=== PATIENT | female | born 1990 | race Two or more races ===

== ENCOUNTER 2024-11-30 10:40 | Day surgery (SDC) | payer SELFPAY ==
[~2024-11-30 10:40] MED LIST: Albuterol 0.083% 2.5 MG/3 ML Neb Soln NEB PRN; Naloxone 0.4 MG/ML SDV IVPUSH PRN; Ondansetron 4 MG/2 ML SDV IVPUSH PRN; ceFAZolin 2 GM in Water For Injection, Sterile 20 ML IVPUSH ONE; fentaNYL 50 MCG/ML SDV IVPUSH PRN
[2024-11-30] MEDS ORDERED: propofoL 1,000 MG/100 ML 100 ML ONE (10:57)
[2024-11-30] MEDS ORDERED: Ropivacaine 0.5% 5 MG/ML 30 ML SDV ONE (10:58)
[2024-11-30] MEDS ORDERED: fentaNYL 100 MCG/2 ML SDV ONE (11:09)
[2024-11-30] MEDS ORDERED: Midazolam 1 MG/ML 2 ML SDV ONE (12:26)
[2024-11-30] MEDS ORDERED: Propofol 200 MG/20 ML SDV ONE (12:32)
[2024-11-30] MEDS: Lactated Ringers 1,000 ML IV SCH (12:39)
[2024-11-30] MEDS ORDERED: Ondansetron 4 MG/2 ML SDV ONE (13:12)
[2024-11-30] MEDS ORDERED: Dexamethasone 4 MG/ML 5 ML MDV ONE (13:12)
[2024-11-30] MEDS ORDERED: Acetaminophen/HYDROcodone 325-5 MG Tab PO PRN (14:00)
[2024-11-30] MEDS ORDERED: Lactated Ringers 1,000 ML IV SCH (14:00)
== END 2024-11-30 15:30 | disposition home or self-care (01) ==
LOC: MW.SDS 10:40 → EEVIPCON 12:00 → MW.SDS 15:30
PROVIDERS: ATTEND Surgery
DX: K42.0 Umbilical hernia with obstruction, without gangrene (principal)
CPT/HCPCS: 49592; 81025; J0665; J0690; J1100; J1308; J2003; J2250; J2405; J2704; J2795; J3010; J7120